=== PATIENT | male | born 1975 ===

== ENCOUNTER 2023-03-19 11:38 | Emergency (ER) | payer MEDICAID ==
[~2023-03-19] VITALS: Ht 175.3 cm; Wt 77.0 kg
[2023-03-19 11:41] VITALS: BP 151/92
[2023-03-19] MEDS ORDERED: SODIUM CHLORIDE 0.9% 1,000 ML IV ONE (16:15)
[2023-03-19 17:05] LABS: BASOPHILS % 0.2 % (0.0-2.0); EOSINOPHILS % 0.7 % (0.0-5.0); HEMOGLOBIN. 16.1 g/dL (14.0-18.0); MEAN CORPUSCULAR HEMOGLOBIN 28.6 pg (28.0-32.0); MEAN PLATELET VOLUME 10.5 fl (7.4-10.4); MONOCYTES % 8.2 % (2.0-8.0); NEUTROPHILS % 67.9 % (40.0-76.0); PLATELET 155 x1000/uL (130-400); RED BLOOD CELL COUNT 5.64 mill/uL (4.7-6.1); RED CELL DISTRIBUTION WIDTH 14.2 % (11.6-14.6)
[2023-03-19 17:09] LABS: CHLORIDE 105 mEq/L (98-107)
[2023-03-19] MEDS ORDERED: ONDANSETRON 4MG ODT PO ONE (18:15)
[2023-03-19] MEDS ORDERED: HYDROCODONE/ACETAMINOPHEN 5/325MG TABLET PO ONE (18:15)
[2023-03-19] MEDS ORDERED: TOPUD MT (18:16)
[2023-03-19] MEDS ORDERED: KETO15CR2 TP (18:16)
[2023-03-19] MEDS ORDERED: IBUP-1523 MT (18:16)
[2023-03-19] MEDS ORDERED: AZIT250T12 MT (18:16)
[2023-03-19 19:03] LABS: CLARITY URINE CLEAR (CLEAR); COLOR URINE YELLOW (YELLOW); KETONES URINE NEGATIVE (NEGATIVE); LEUKOCYTE ESTERASE URINE NEGATIVE (NEGATIVE); NITRITE URINE NEGATIVE (NEGATIVE); OCCULT BLOOD URINE NEGATIVE (NEGATIVE); PH URINE 6.5 (4.5-8.0); PROTEIN URINE NEGATIVE (NEGATIVE); SPECIFIC GRAVITY URINE 1.021 (1.005-1.030)
[2023-03-19 19:35] LABS: *AMPHETAMINES SCREEN URINE NEGATIVE (NEGATIVE); *BARBITURATES SCREEN URINE NEGATIVE (NEGATIVE); *BENZODIAZEPINES SCREEN URINE NEGATIVE (NEGATIVE); *COCAINE SCREEN URINE NEGATIVE (NEGATIVE); CANNABINOID URINE SCREEN NEGATIVE (NEGATIVE); METHADONE URINE SCREEN NEGATIVE (NEGATIVE); OPIATES URINE SCREEN NEGATIVE (NEGATIVE); PHENCYCLIDINE URINE SCREEN NEGATIVE (NEGATIVE)
== END 2023-03-19 20:36 | disposition home or self-care (01) ==
LOC: ER 11:38
DX: R51.9 Headache, unspecified (principal); R42 Dizziness and giddiness; R00.2 Palpitations; R06.02 Shortness of breath; E11.9 Type 2 diabetes mellitus without complications; Z79.899 Other long term (current) drug therapy
CPT/HCPCS: 36415; 70450; 71045; 80053; 80305; 81003; 83880; 84484; 85025; 99284; J7030; 99285